=== PATIENT | female | born 1975 | race Caucasian/White ===

== ENCOUNTER 2025-05-08 15:35 | Outpatient (AMB) | payer BC, SELFPAY ==
--- OUTSIDE RECORDS SUMMARY | 2025-05-08 18:29 | XMS_ITS | Patient Health Record ---
Author Organization [facility] Address [address] [place] [id number] Care Team Providers Care Child Psychiatrist Name Role Phone Ramya Frederick Primary Care Provider Paul Boogie Jr Unavailable [phone] Reason For Referral No Information Medications Medication SIG (Take, Route, Frequency, Duration) Notes Start Date End Date Status Zafirlukast Active 1 1 tablet Orally b.i.d. 07/09/201108/31 Active Xopenex Active Mirena Active Claritin Active Bisoprolol-hydroCHLOROthia zide Active Omeprazole 20 MG 1 capsule Orally Onc e a day for 30 day(s) 05/28/2012 08/31/2024 Active Flonase Active Fluoxetine Active Vitamin B-6 08/31/2024 08/31/2024 Active Dulera Active Problems Problem Type SNOMED Code ICD Code Onset Dates Problem Status W/U Status Risk Notes Problem Irritable bowel syndrome (35865446) Irritable bowel syndrome (564.1) Active confirmed Plan Of Treatment No Information Insurance Providers Payer Name Payer Address Payer Phone Subscriber Number Group Number Insured Name Patient Relationship to Insured Coverage Start Date Coverage End Date [facility] [place] [place] [employer] PROF[employer]AL CLAIMS [address] [place] [address] [id number] Self - patient is the insured Medical (General) History Medical History History ICD Code egd 04-05-2010 chronic gastritis fast heart rate asthma allergies Denies [place],DM,CVA,renal disease Surgical History Surgery Date(Month/Year) cholecystectomy appendectomy ear surgery
--- OUTSIDE RECORDS SUMMARY | 2025-05-08 18:29 | XMS_ITS | Clinical Summary ---
Author Organization [facility] Address [address] [place] [address] Care Team Providers Care Sales Associate Cashier Name Role Phone Unavailable Primary Care Provider Unavailabl e Social History Tobacco Use Types Packs/Day Years Used Date Smoking Tobacco: Never Assessed Comments Unknown Sex and Gender Information Value Date Recorded Sex Assigned at Not on file Legal Sex Female 5:22 PM EST Gender Identity Not on file Sexual Orientation Not on file Plan of Treatment Health Maintenance Due Date Last Done Comments Hepatitis C Virus Screening 1977 HIV Screening 1990 DTaP/Tdap/Td Vaccines (1 - Tdap) 1996 Hepatitis B Vaccines (1 of 3 - 19+ 3-dose series) 1996 COVID-19 Vaccine (2023-2 5 season) 2025 Pneumococcal Vaccine: Pediat kannan (0-5 Years) and At-Risk Patients (6 to 49 Years) Aged Out No longer eligible b ased on patient's age to complete this topic
== END 2025-05-08 15:37 | disposition home or self-care (01) ==
LOC: HO.HMGAL 15:35
PROVIDERS: Visit Provider Registered Nurse Emergency
DX: J30.89 Other allergic rhinitis (principal)
CPT/HCPCS: 95117; 95165

== ENCOUNTER 2025-06-26 15:30 | Outpatient (AMB) | payer BC, SELFPAY ==
--- OUTSIDE RECORDS SUMMARY | 2025-06-26 18:39 | XMS_ITS | Clinical Summary ---
Author Organization [facility] Address [address] [place] [address] Care Team Providers Care Visiting Professor Name Role Phone Unavailable Primary Care Provider [...]
--- OUTSIDE RECORDS SUMMARY | 2025-06-26 18:39 | XMS_ITS | Patient Health Record ---
Author Organization [facility] Address [address] [place] [address] Care Team Providers Care Cement Or Concrete Finishing Supervisor Name Role Phone Ramya Frederick Primary Care Provider Paul Boogie Jr Unavailable Reason For Referral No Information Medications Medication SIG (Take, Route, Frequency, Duration) Notes Start Date End Date Status Zafirlukast Active 1 1 tablet Orally b.i.d. 07/09/201108/31 Active Xopenex Active Mirena Active Claritin Active Bisoprolol-hydroCHLOROthia zide Active Omeprazole 20 MG 1 capsule Orally Onc e a day; Duration: 30 day(s) 05/28/2012 08/31/2024 Active Flonase Active Fluoxetine Active Vitamin B-6 08/31/2024 08/31/2024 Active Dulera Active Problems Problem Type SNOMED Code ICD Code Onset Dates Problem Status W/U Status Risk Notes Problem Irritable bowel syndrome (78898531) Irritable bowel syndrome (564.1) Active confirmed Plan Of Treatment No Information Insurance Providers Payer Name Payer Address Payer Phone Subscriber Number Group Number Insured Name Patient Relationship to Insured Coverage Start Date Coverage End Date [facility] [place] [employer] PROF[employer]AL CLAIM[employer] [address] [place] [address] [phone] [id number] Self - patient is the insured Medical (General) History Medical History History ICD Code egd 04-05-2010 chronic gastritis fast heart rate asthma allergies Denies [place],DM,CVA,renal disease Surgical History Surgery Date(Month/Year) cholecystectomy appendectomy ear surgery
== END 2025-06-26 15:30 | disposition home or self-care (01) ==
LOC: HO.HMGAL 15:30
PROVIDERS: PCP Internal Medicine; Visit Provider Registered Nurse Emergency
DX: J30.89 Other allergic rhinitis (principal)
CPT/HCPCS: 95117; 95165

== ENCOUNTER 2025-08-21 09:27 | Outpatient (AMB) | payer BC, SELFPAY ==
--- OUTSIDE RECORDS SUMMARY | 2025-08-21 10:40 | XMS_ITS | Patient Health Record ---
Author Organization [facility] Address [address] [place] [id number] Care Team Providers Care Tree Trimming Line Technician Name Role Phone Ramya Frederick Primary Care Provider Paul Boogie Jr Unavailable Reason For Referral No Information Medications Medication SIG (Take, Route, Frequency, Duration) Notes Start Date End Date Status Zafirlukast Active 1 Tablet 1 tablet Orally b.i.d. 1 Active Xopenex Active Mirena Active Claritin Active Bisoprolol-hydroCHLOROthia zide Active Omeprazole 20 MG Capsule Delayed Release 1 capsule Orally Once a day; Duration: 30 day(s) 05/28/2012 Active Flonase Active Fluoxetine Active Vitamin B-6 Active Dulera Active Social History Social History Additional Details Category Social Info Options Details Miscellaneous: Marital status: Occupation: teacher Problems Problem Type SNOMED Code ICD Code Onset Dates Problem Status W/U Status Risk Notes Problem Irritable bowel syndrome (77973070) Irritable bowel syndrome (564.1) Active confirmed Plan Of Treatment No Information Insurance Providers Payer Name Payer Address Payer Phone Subscriber Number Group Number Insured Name Patient Relationship to Insured Coverage Start Date Coverage End Date [facility] [place] [employer] PROFESSIONAL CLAIMS [address] [place] [address] [id number] Self - patient is the insured Medical (General) History Medical History History ICD Code egd 04-05-2010 chronic gastritis fast heart rate asthma allergies Denies [place],DM,CVA,renal disease Surgical History Surgery Date(Month/Year) cholecystectomy appendectomy ear surgery
--- OUTSIDE RECORDS SUMMARY | 2025-08-21 10:40 | XMS_ITS | Clinical Summary ---
Author Organization [facility] Address [address] [place] [address] Care Team Providers Care Rectangular Tank Cooper Name Role Phone Unavailable Primary Care Provider [...] - 19+ 3-dose series) 1996 COVID-19 Vaccine (2024-2 6 season) 2025 Pneumococcal Vaccine: Pediat kannan (0-5 Years) and At-Risk Patients (6 to 49 Years) Aged Out No longer eligible b ased on patient's age to complete this topic
== END 2025-08-21 09:27 | disposition home or self-care (01) ==
LOC: HO.HMGAL 09:27
PROVIDERS: PCP Internal Medicine; Visit Provider Registered Nurse Emergency
DX: J30.89 Other allergic rhinitis (principal)
CPT/HCPCS: 95117; 95165